=== PATIENT | male | born 1990 | race Caucasian/White ===

== ENCOUNTER 2017-02-04 18:03 | Day surgery (SDC) | payer OTHER ==
[~2017-02-04] VITALS: Ht 185.4 cm; Wt 85.0 kg
[2017-02-04] MEDS ORDERED: ONDANSETRON 4MG/2ML VIAL (J2405) IV ONE (19:30)
[2017-02-04] MEDS ORDERED: LIDOCAINE 1% MDV 20ML VIAL SC ONE (19:30)
[2017-02-04] MEDS ORDERED: MORPHINE 4 MG/ML 1ML SYRINGE IV ONE (19:30)
[2017-02-04] MEDS ORDERED: HYDROmorphone HCL 1 MG/ML SYRINGE (J1170) IV ONE (20:30)
--- NOTE | 2017-02-04 21:52 | HPEPDOC ---
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 He presented to the [facility] emergency room and orthopedics was consulted for further evaluation. Patient reports pain to the left knee and anterior and lateral thigh. Home Medications No Active Prescriptions or Reported Meds Allergies Coded Allergies: Cefaclor (Verified Allergy, Severe, Anaphylaxis, 02/04/17) Cephalosporins (Verified Allergy, Severe, Anaphylaxis, 02/04/17) Past Medical History Medical History none Surgical History none Family History Significant Family History: No pertinent family hx Social History * Smoker: chew Alcohol: occationally Drugs: denies Psychosocial History: No pertinent psych hx [employer] duty [employer]- [employer]. lives with Review of Symptoms Constitutional: Denies: Chills, Fever, Malaise, Night Sweats, Weakness, Fatigue , Weight Loss, Lethargy, Other Eyes: Denies: Pain, Vision change, Conjunctivae inflammation, Eyelid inflammation, Redness, Other ENT: Denies: Head Aches, Ear Pain, Dysphagia, Sinus Congestion, Post Nasal Drip , Sore Throat, Epistaxis, Other Symptoms Skin: Denies: Rash, Lesions, Jaundice, Bruising, Itching, Dry, Breakdown, Nail Changes, Other Pulmonary: Denies: Dyspnea, Cough, Pleuritic Chest Pain, Other Symptoms Cardiovascular: Denies: Chest Pain, Palpitations, Orthopnea, Paroxysmal Noc. Dyspnea, Edema, Lt Headedness, Other Symptoms Gastrointestinal: Denies: Nausea, Vomiting, Abdominal Pain, Diarrhea, Constipation, Melena, Hematochezia, Other Symptoms Genitourinary: Denies: Dysuria, Frequency, Incontinence, Hematuria, Retention, Other Symptoms Hematologic: Denies: Bruising, Bleeding Excessively, Petecchia, Purpura, Enlarged Lymph Nodes, Other Hematologic Endocrine: Denies: Polydipsia, Polyphagia, Polyuria, Heat Intolerance, Cold Intolerance, Other Endocrine Sx Musculoskeletal: Reports: Leg Pain (knee pain per HPI) Neurological: Denies: Weakness, Numbness, Incoordination, Change in speech, Confusion, Seizures, Other Symptoms Psych: Denies: Mood Normal, Anxiety, Depression, Memory Issues, Thoughts of Self Harm, Anger, Thoughts of Harming Other, Other Psych Physical Examination General Exam: Positive: Alert, Cooperative, Mild Distress Eye Exam: Positive: EOMI ENT Exam: Positive: Atraumatic Chest Exam: Positive: Normal air movement Heart Exam: Positive: Rate Normal Extremity Exam: Positive: Other (Left knee exam demonstrates a 3cm laceration near the superior border of the patella. Patient is able to perform a straight leg raise. There is diffuse tenderness about the left knee. There is an additional superficial abrasion about the anterior knee 2cm in length. Knee was loaded with normal saline with extravasation of fluid from the wound.) Neuro Exam: Positive: Sensation Intact Vital Signs Vital Signs Date Time Temp Pulse Resp B/P (MAP) Pulse Ox O2 Delivery O2 Flow Rate FiO2 02/04/17 20:57 18 98 02/04/17 19:09 02/04/17 18:04 98.2 81 Room Air RAD Interpretation STUDY: left knee Rad Actions: Films Reviewed (Demonstrate air arthrogram with small nondisplaced superolateral patellar fx) Assessment/Plan 26 y/o male with a left knee traumatic arthrotomy Problems (1) Laceration of left knee with complication Status: Acute Plan / VTE VTE Prophylaxis Ordered?: Yes (SCDs) VTE Exclusion Pharmacological: At Low Risk for VTE Plan Plan Discussed with the patient the nature of his injury and the proposed treatment. Discussed with him the risks, benefits, indications, and alternatives of operative versus nonoperative treatment and recommend operative irrigation and debridement with primary wound closure. Patient expressed understanding of the nature of his injury and elected to proceed. Informed consent was obtained. Disposition NPO Clindamycin 900mg IV OCTOR admit for overnight observation discharge home in morning Diet: Make NPO Activity: Bedrest Anticipated Discharge: Home LEDA BROWN MD Feb 04, 2017 21:52
[2017-02-04] MEDS ORDERED: CLINDAMYCIN 900 MG/50 ML PREMIX BAG As Ordered ONE (22:02)
[2017-02-04] MEDS ORDERED: MIDAZOLAM INJ 2 MG/2 ML VIAL (J2250) As Ordered ONE (22:03)
[2017-02-04] MEDS ORDERED: fentaNYL 100 MCG/2 ML INJECTION (J3010) As Ordered ONE ×2 (22:03→23:42)
[2017-02-04] MEDS ORDERED: PROPOFOL 200 MG/20 ML VIAL As Ordered ONE (22:03)
[2017-02-04] MEDS ORDERED: LIDOCAINE 2% INJ 100 MG/5 ML SDV (FOR ANES.) As Ordered ONE (22:03)
[2017-02-04] MEDS ORDERED: CLINDAMYCIN INJ 900MG/6ML VIAL As Ordered ONE (22:05)
[2017-02-04] MEDS ORDERED: BUPIVACAINE HCL 0.25% 30 ML VIAL As Ordered ONE (22:10)
[2017-02-04] MEDS ORDERED: LIDOCAINE 1% SDV INJ 30 ML VIAL As Ordered ONE (22:10)
[2017-02-04] MEDS ORDERED: ONDANSETRON 4MG/2ML VIAL (J2405) As Ordered ONE (22:31)
[2017-02-04] MEDS ORDERED: MEPERIDINE INJ 25 MG/ML VIAL (J2175) As Ordered ONE (23:33)
[2017-02-04] MEDS: MEPERIDINE INJ 25 MG/ML VIAL (J2175) IV PRN ×2 (23:40→23:50)
[2017-02-04] MEDS ORDERED: fentaNYL 100 MCG/2 ML INJECTION (J3010) IV PRN (23:45)
[2017-02-04] MEDS ORDERED: PERCOCET 5MG/325MG TAB PO PRN ×3 (23:45)
[2017-02-04] MEDS ORDERED: ONDANSETRON 4MG/2ML VIAL (J2405) IV PRN ×2 (23:45)
[2017-02-04] MEDS ORDERED: NAPROXEN 250 MG TAB PO SCH (23:45)
[2017-02-04] MEDS ORDERED: LR 1,000 ML IV SCH (23:45)
[2017-02-04] MEDS ORDERED: HYDROmorphone HCL 1 MG/ML SYRINGE (J1170) IV PRN (23:45)
[2017-02-05 00:40] VITALS: BP 135/75
[2017-02-05] MEDS: KETOROLAC 30 MG/ML VIAL (J1885) IV SCH ×2 (01:02→06:41)
[2017-02-05 01:10] VITALS: BP 127/79
[2017-02-05 02:40] VITALS: BP 128/75
[2017-02-05 03:39] VITALS: BP 110/57
[2017-02-05 04:40] VITALS: BP 107/53
[2017-02-05 05:45] VITALS: BP 111/53
--- NOTE | 2017-02-05 05:58 | REP ---
Left knee series: Five views. History: Trauma. Findings: Five views of the left knee demonstrate soft tissue defect consistent with a laceration in the prepatellar soft tissues adjacent to the upper pole of the patella. There are bubbles of soft tissue gas in the suprapatellar bursa and posterior to the distal femur consistent with intra-articular gas. In addition, there are three tiny calcific opacities which project adjacent to the medial femoral condyle and lateral femoral condyle . One of these is in the medial joint space consistent with intra-articular fracture fragment versus debris. On oblique radiograph, there is some cortical irregularity of the superolateral aspect of the patella. This may be the origin of the fracture fragments. Impression: Laceration over the upper pole of the patella with a probable superolateral patellar chip fracture, definite intra-articular air, and three intra-articular calcific densities consistent with fracture fragments or opaque debris. Signed by John Bender MD 02/05/2017 08:24 A
[2017-02-05] MEDS ORDERED: CLINDAMYCIN 900 MG in APPROPRIATE DILUENT 1 EA IV SCH ×4 (06:00)
--- NOTE | 2017-02-05 10:09 | RO ---
DATE OF PROCEDURE: 02/04/2017 PREPROCEDURE DIAGNOSIS: Left knee traumatic arthrotomy. POSTPROCEDURE DIAGNOSIS: Left knee traumatic arthrotomy. PROCEDURE PERFORMED: Left knee irrigation and debridement. SURGEON: Asher Spencer MD FAITH HEALER: None. ANESTHESIA: LMA and local. ANTIBIOTIC: 900 mg of clindamycin given within 1 hour of incision. ESTIMATED BLOOD LOSS: 20 mL. MATERIALS SENT TO LAB: None. COMPLICATIONS: None. 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 He had evidence of an air arthrogram on plain radiographs with a small nondisplaced superolateral patellar fracture, intact extensor mechanism and laceration of the anterior aspect of his knee. The joint was loaded with immediate extravasation of fluid. Given this constellation of findings consistent with traumatic arthrotomy, I discussed with the patient the risks, benefits, indications and alternatives of operative versus nonoperative management and recommended operative irrigation and debridement with primary wound closure. The patient expressed understanding and agreed with the plan and elected to proceed. Informed consent was obtained. INTRAOPERATIVE FINDINGS: The patient had a traumatic arthrotomy on the superolateral aspect of the retinaculum at the superior pole of the patella. The quadriceps tendon was intact. There were no loose bodies identified in the knee joint. No foreign material identified in the knee joint. DESCRIPTION OF PROCEDURE: The patient was positively identified in the preoperative holding area where the surgical site was marked. He was brought to the operating room where he was placed under LMA anesthesia. He was then prepped and draped in the usual sterile fashion. A final time out was performed. I extended the incision, both proximally and distally approximately 2 cm in each direction. I dissected skin and subcutaneous tissue and identified the retinacular layer with the obvious, approximately 2 cm arthrotomy. In the superolateral aspect of the retinaculum, I extended the arthrotomy slightly to visualize the knee joint to confirm that there was no foreign material or loose body within the knee joint. After this was explored, I then thoroughly irrigated the knee with 9 liters of normal saline, after which the retinacular layer was closed with interrupted #0 PDS suture in figure of eight fashion. The subcutaneous layer where the incisions were extended were closed with buried #2-0 PDS subcutaneous sutures and the skin was closed with ryann. After skin was closed, I injected 10 mL mixture of 1% Lidocaine and 0.5% Marcaine without epinephrine into the wound for local pain control. Sterile dressings were then applied, thus ending the procedure. I was present for all portions of the case. POSTOPERATIVE PLAN: The patient was placed into a knee immobilizer for comfort and soft tissue rest. He will be observed in the hospital overnight and discharged home in the morning. He will followup with me in the clinic next week for a wound check. ASHLY
== END 2017-02-05 08:30 | disposition home or self-care (01) ==
LOC: M ED 18:03 → M SDC 21:26 → M MSPAV 02-05 00:33 → M SDC 02-05 08:30
PROVIDERS: ATTEND Orthopaedic Surgery
DX: S81.002A Unspecified open wound, left knee, initial encounter (principal); W19.XXXA Unspecified fall, initial encounter; Y93.02 Activity, running; Y92.89 Other specified places as the place of occurrence of the external cause; Y99.8 Other external cause status; Z88.1 Allergy status to other antibiotic agents; Z72.0 Tobacco use
CPT/HCPCS: 27310; 73564; 96374; 96375; 99284; J1170; J1885; J2175; J2250; J2405; J3010